=== PATIENT | female | born 2000 | race African-American/Black ===

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

== ENCOUNTER 2018-01-16 16:07 | Outpatient (CLI) | payer BC ==
[2018-01-16 17:14] LABS: APPEARANCE,URINE SLIGHTLY-CLOUDY; BILIRUBIN,URINE NEGATIVE (NEGATIVE); COLOR,URINE YELLOW; GLUCOSE, URINE NEGATIVE (NEGATIVE); KETONES,URINE NEGATIVE (NEGATIVE); LEUKOCYTE ESTERASE,URINE SMALL (NEGATIVE); NITRITE,URINE NEGATIVE (NEGATIVE); PROTEIN,URINE NEGATIVE (NEGATIVE); URINE SPECIFIC GRAVITY 1.021; UROBILINOGEN,URINE NEGATIVE mg/dL (<2.0)
[2018-01-16 17:28] LABS: URINE AMPHETAMINES SCREEN NEGATIVE; URINE BARBITURATES SCREEN NEGATIVE; URINE BENZODIAZEPINES SCREEN NEGATIVE; URINE COCAINE SCREEN NEGATIVE; URINE MARIJUANA (THC) SCREEN NEGATIVE; URINE METHADONE SCREEN NEGATIVE; URINE PHENCYCLIDINE SCREEN NEGATIVE
== END 2018-01-16 17:30 | disposition home or self-care (01) ==
LOC: LC 16:07
PROVIDERS: ATTEND Obstetrics & Gynecology Gynecology
PROC: 4A1HXCZ Monitoring of Products of Conception, Cardiac Rate, External Approach (ICD-10-PCS; principal; 2018-01-16)
DX: O47.02 False labor before 37 completed weeks of gestation, second trimester (principal); Z3A.27 27 weeks gestation of pregnancy
CPT/HCPCS: 80307; 81001

== ENCOUNTER 2018-02-26 02:04 | Outpatient (CLI) | payer BC ==
[2018-02-26] MEDS ORDERED: MAG HYDROX/AL HYDROX/SIMETH SUSP 30 ML UDCUP PO ONE (02:32)
[2018-02-26] MEDS ORDERED: ONDANSETRON HCL INJ/PF 4 MG/2 ML SDV IV ONE (02:32)
[2018-02-26] MEDS ORDERED: MAG HYDROX/AL HYDROX/SIMETH SUSP 30 ML UDCUP ONE (02:40)
[2018-02-26] MEDS ORDERED: ONDANSETRON HCL INJ/PF 4 MG/2 ML SDV ONE (02:40)
[2018-02-26 02:43] LABS: APPEARANCE,URINE CLEAR; BILIRUBIN,URINE NEGATIVE (NEGATIVE); COLOR,URINE YELLOW; GLUCOSE, URINE NEGATIVE (NEGATIVE); KETONES,URINE NEGATIVE (NEGATIVE); LEUKOCYTE ESTERASE,URINE NEGATIVE (NEGATIVE); NITRITE,URINE NEGATIVE (NEGATIVE); PROTEIN,URINE NEGATIVE (NEGATIVE); URINE SPECIFIC GRAVITY 1.013; UROBILINOGEN,URINE NEGATIVE mg/dL (<2.0)
[2018-02-26] MEDS ORDERED: RINGERS SOLUTION,LACTATED 1,000 ML IV ONE (02:58)
[2018-02-26] MEDS ORDERED: RINGERS SOLUTION,LACTATED 1,000 ML IV PRN (02:58)
[2018-02-26 03:02] LABS: URINE AMPHETAMINES SCREEN NEGATIVE; URINE BARBITURATES SCREEN NEGATIVE; URINE BENZODIAZEPINES SCREEN NEGATIVE; URINE COCAINE SCREEN NEGATIVE; URINE MARIJUANA (THC) SCREEN NEGATIVE; URINE METHADONE SCREEN NEGATIVE; URINE PHENCYCLIDINE SCREEN NEGATIVE
== END 2018-02-26 04:12 | disposition home or self-care (01) ==
LOC: LC 02:04
PROVIDERS: ATTEND Obstetrics & Gynecology Gynecology
PROC: 4A1HXCZ Monitoring of Products of Conception, Cardiac Rate, External Approach (ICD-10-PCS; principal; 2018-02-26)
DX: O26.893 Other specified pregnancy related conditions, third trimester (principal); R11.2 Nausea with vomiting, unspecified; O47.03 False labor before 37 completed weeks of gestation, third trimester; Z3A.33 33 weeks gestation of pregnancy
CPT/HCPCS: 59025; 81001; 80307; J2405

== ENCOUNTER → 2018-03-12 | Outpatient (CLI) | payer BC ==
[2018-03-12 10:50] LABS: ALANINE AMINOTRANSFERASE 25 U/L (5-35); ALBUMIN 3.3 g/dL (3.7-5.6); ALKALINE PHOSPHATASE 126 U/L (50-135); ASPARTATE AMINO TRANSFERASE 17 U/L (5-30); BILIRUBIN,DIRECT 0.1 mg/dL (0.0-0.4); TOTAL PROTEIN 6.3 g/dL (6.3-8.2)
[2018-03-12 10:54] LABS: C-REACTIVE PROTEIN < 5.0 mg/L (<10.0)
--- NOTE | 2018-03-12 12:00 | RADIOLOGY REPORT (SQ) ---
EXAM DESCRIPTION: U/S ABDOMEN LIMITED W/O DOP COMPLETED DATE/TIME: 03/12/2018 10:20 am REASON FOR STUDY: R10.11 RIGHT UPPER QUADRANT PAIN R11.2 NAUSEA WITH VOMITING, UNSPECIFIED R10.11 R IGHT UPPER QUADRANT PAIN R11.2 NAUSEA WITH VOMITING, UNSPECIFIED COMPARISON: None. TECHNIQUE: Dynamic and static grayscale images acquired of the abdomen and recorded on PACS. [facility] color Doppler and spectral images recorded. LIMITATIONS: Study is limited due to overlying bowel gas. FINDINGS: PANCREAS: The pancreas could not be visualized due to overlying bowel gas. LIVER: No masses. Echotexture normal. LIVER VASCULATURE: Normal directional flow of the main portal vein. GALLBLADDER: No stones. Normal wall thickness. No pericholecystic fluid. ULTRASOUND-DETECTED GUTIERREZ'S SIGN: Negative. INTRAHEPATIC DUCTS AND COMMON DUCT: CBD and intrahepatic ducts normal caliber. No filling defects. INFERIOR VENA CAVA: Normal flow. AORTA: No aneurysm. RIGHT KIDNEY: 12.4 cm in length. Normal echogenicity. No solid or suspicious masses. There is moder ate hydronephrosis involving the right kidney with the renal pelvis measuring 12 mm presumably relate d to the patient's gestational age. No renal calculi are identified. PERITONEAL AND RIGHT PLEURAL SPACE: No ascites or effusions. OTHER: There is a questionable right pleural effusion IMPRESSION: There is hydronephrosis of the right kidney presumably related to the patient's gestatio nal age however clinical correlation is recommended. No right renal calculi are identified. Other f indings as noted above TECHNICAL DOCUMENTATION: JOB ID: [id number] [employer]- All Rights Reserved Reading location - IP/workstation name: [email or web address]
== END ==
LOC: RAD 11:36
PROVIDERS: ATTEND Internal Medicine Gastroenterology
DX: R10.11 Right upper quadrant pain (principal); R11.2 Nausea with vomiting, unspecified; R10.13 Epigastric pain; R19.4 Change in bowel habit
CPT/HCPCS: 36415; 76705; 80076; 86140

== ENCOUNTER 2018-03-27 16:51 | Outpatient (CLI) | payer BC ==
--- NOTE | 2018-03-27 17:30 | Non Stress Test Report ---
Non Stress Test Datetime Report Generated by CPN: 03/27/2018 17:29 DEMOGRAPHIC EGA NST: 37.3 INDICATION Indication for Study: Decreased Movement; Ordered by Provider Indication for Study: Decreased Movement MONITORING Monitor Explained: Monitor Explained; Test Explained; Patient Verbalized Understanding Time on Monitor: 03/27/2018 17:02 Time off Monitor: 03/27/2018 17:24 NST Duration: 22 NST INTERVENTIONS NST Interventions: PO Hydration NST Interventions: None Physician Notified NST: Dr Cabrera BABY A Movement : Present Contraction Frequency : irritability FHR Baseline : 135 Accelerations : 15X15 Accelerations : 15X15 Decelerations : None Variability : Moderate 6-25bpm NST Review: Meets Criteria for Reactive NST NST Review and Verified By : Damian Branch RN NST Results: Reactive NST REPORT Report Trigger: Send Report
== END 2018-03-27 17:36 | disposition home or self-care (01) ==
LOC: LC 16:51
PROVIDERS: ATTEND Obstetrics & Gynecology Gynecology
PROC: 4A1HXCZ Monitoring of Products of Conception, Cardiac Rate, External Approach (ICD-10-PCS; principal; 2018-03-27)
DX: O36.8130 Decreased fetal movements, third trimester, not applicable or unspecified (principal); Z3A.37 37 weeks gestation of pregnancy
CPT/HCPCS: 59025

== ENCOUNTER 2018-04-15 11:46 | Outpatient (CLI) | payer BC ==
[2018-04-15 14:15] LABS: APPEARANCE,URINE CLOUDY; BILIRUBIN,URINE NEGATIVE (NEGATIVE); COLOR,URINE YELLOW; GLUCOSE, URINE NEGATIVE (NEGATIVE); KETONES,URINE TRACE mg/dL (NEGATIVE); LEUKOCYTE ESTERASE,URINE LARGE (NEGATIVE); NITRITE,URINE NEGATIVE (NEGATIVE); PROTEIN,URINE 30 mg/dL (NEGATIVE); URINE SPECIFIC GRAVITY 1.019; UROBILINOGEN,URINE NEGATIVE mg/dL (<2.0)
--- NOTE | 2018-04-15 14:29 | Non Stress Test Report ---
Non Stress Test Datetime Report Generated by CPN: 04/15/2018 14:28 DEMOGRAPHIC EGA NST: 40.1 INDICATION Indication for Study: Other Indication for Study (NST) Other: labor check VITAL SIGNS Temperature - NST: 98.9 Pulse - NST: 90 RESP - NST: 16 NBPSYS NST: 107 NBPDIA NST: 58 MONITORING Monitor Explained: Monitor Explained; Test Explained; Patient Verbalized Understanding Time on Monitor: 04/15/2018 12:27 Time off Monitor: 04/15/2018 12:47 NST Duration: 20 NST INTERVENTIONS NST Interventions: PO Hydration Physician Notified NST: J. Lira, CNM BABY A: [id number] BABY A Movement : Present Contraction Frequency : rare FHR Baseline : 150 Accelerations : 15X15 Decelerations : None Variability : Moderate 6-25bpm NST Review: Meets Criteria for Reactive NST NST Review and Verified By : Susanne Aguillon RN NSTate Results: Reactive NST REPORT Report Trigger: Send Report
[2018-04-15 14:35] LABS: URINE AMPHETAMINES SCREEN NEGATIVE; URINE BARBITURATES SCREEN NEGATIVE; URINE BENZODIAZEPINES SCREEN NEGATIVE; URINE COCAINE SCREEN NEGATIVE; URINE MARIJUANA (THC) SCREEN NEGATIVE; URINE METHADONE SCREEN NEGATIVE; URINE PHENCYCLIDINE SCREEN NEGATIVE
== END 2018-04-15 14:36 | disposition home or self-care (01) ==
LOC: LC 11:46
PROVIDERS: ATTEND Obstetrics & Gynecology Gynecology
PROC: 4A1HXCZ Monitoring of Products of Conception, Cardiac Rate, External Approach (ICD-10-PCS; principal; 2018-04-15)
DX: O47.1 False labor at or after 37 completed weeks of gestation (principal); Z3A.40 40 weeks gestation of pregnancy
CPT/HCPCS: 59025; 80307; 81005

== ENCOUNTER 2018-04-17 10:32 | Inpatient (IN) | payer BC ==
[2018-04-17 11:58] LABS: APPEARANCE,URINE CLOUDY; BILIRUBIN,URINE NEGATIVE (NEGATIVE); GLUCOSE, URINE NEGATIVE (NEGATIVE); KETONES,URINE NEGATIVE (NEGATIVE); LEUKOCYTE ESTERASE,URINE MODERATE (NEGATIVE); NITRITE,URINE NEGATIVE (NEGATIVE); PROTEIN,URINE 100 mg/dL (NEGATIVE); URINE SPECIFIC GRAVITY 1.017; UROBILINOGEN,URINE NEGATIVE mg/dL (<2.0)
[2018-04-17 12:01] LABS: COLOR,URINE DARK YELLOW
[2018-04-17 12:13] LABS: URINE AMPHETAMINES SCREEN NEGATIVE; URINE BARBITURATES SCREEN NEGATIVE; URINE BENZODIAZEPINES SCREEN NEGATIVE; URINE COCAINE SCREEN NEGATIVE; URINE MARIJUANA (THC) SCREEN NEGATIVE; URINE METHADONE SCREEN NEGATIVE; URINE PHENCYCLIDINE SCREEN NEGATIVE
[2018-04-17] MEDS ORDERED: RINGERS SOLUTION,LACTATED 1,000 ML IV PRN (13:26)
[2018-04-17] MEDS ORDERED: RINGERS SOLUTION,LACTATED 1,000 ML IV ONE (13:26)
[2018-04-17 14:28] LABS: ABSOLUTE LYMPHOCYTES (AUTO) 1.5 10^3/uL (0.5-4.7); ABSOLUTE MONOCYTES (AUTO) 0.8 10^3/uL (0.1-1.4); ABSOLUTE NEUT (AUTO) 8.9 10^3/uL (1.7-8.2); BASOPHILS % (AUTO) 0.3 % (0-2); EOSINOPHILS % (AUTO) 0.2 % (0-6); HEMATOCRIT 34.2 % (36.0-47.0); HEMOGLOBIN 11.3 g/dL (12.0-15.5); LYMPHOCYTES % (AUTO) 13.5 % (13-45); MEAN CORPUSCULAR HEMOGLOBIN 30.2 pg (27.0-33.4); MEAN CORPUSCULAR VOLUME 92 fl (80-97); MONOCYTES % (AUTO) 7.2 % (3-13); PLATELET COUNT 252 10^3/uL (150-450); RED BLOOD COUNT 3.74 10^6/uL (3.72-5.28); RED CELL DISTRIBUTION WIDTH 15.8 % (11.5-14.0); SEGMENTED NEUTROPHILS % (AUTO) 78.8 % (42-78); TOTAL CELLS COUNTED % (AUTO) 100 %; WHITE BLOOD COUNT 11.3 10^3/uL (4.0-10.5)
[2018-04-17] MEDS ORDERED: BUPIVACAINE HCL 0.25 % INJ/PF (2.5 MG/1 ML) 30 ML VIAL ONE (15:25)
[2018-04-17] MEDS ORDERED: FENTANYL/BUPIVACAINE/NS/PF 300 MCG/150 ML RTUINJ EPI ONE (15:25)
[2018-04-17] MEDS ORDERED: EPHEDRINE SULFATE INJ 50 MG/1 ML AMPULE ONE (15:25)
--- NOTE | 2018-04-17 15:46 | Admission Physical ---
Datetime Report Generated by CPN: 04/17/2018 15:45 CURRENT ADMISSION Hx Assessment: The History has been Reviewed and is Current Chief Complaint: Uterine Contractions Indication for Induction: Not Applicable Admit Impression : Postterm, Intrauterine Admit Plan: Admit to Unit; Initiate Labor Protocol ALLERGIES Medication Allergies: No Medication Allergies: No Known Allergies (04/15/2018) Latex: No Latex Allergies OBSTETRICAL HISTORY EDC: 04/14/2018 00:00 : 1 Para: 0 Term: 0 : 0 SAB: 0 IAB: 0 Ectopic: 0 Livin Cesareans: 0 VBACs: 0 Multiple Births: 0 Gestational Diabetes: No Rh Sensitization: No Incompetent Cervix: No NOLAN: No Infertility: No ART Treatment: No Uterine Anomaly: No IUGR: No Hx Previous C/S: No Macrosomia: No Hx Loss/Stillborn: No PIH: No Hx : No Placenta Previa/Abruption: No Depression/PP Depression: No PTL/PROM: No Post Hemorrhage: No Current Procedures: Ultrasound; NST Obstetrical History Comments: G1-current SEE RECORDS Alcohol: No Marijuana : No Cocaine: No Other Illicit Drugs: No Cigarettes: Never Smoker. [id number] MEDICAL HISTORY Diabetes: No Blood Transfusion: No Pulmonary Disease (Asthma, TB): No Breast Disease: No Hypertension: No Hoop Coiler Surgery: No Heart Disease: No Hosp/Surgery: No Autoimmune Disorder: No Anesthetic Complications: No Kidney Disease: Yes Abnormal Pap Smear: No Neuro/Epilepsy: No Psychiatric Disorders: No Other Medical Diseases: Yes Hepatitis/Liver Disease: No Significant Family History: No Varicosities/Phlebitis: No Trauma/Violence : No Thyroid Dysfunction: No Medical History Comments: Anemia; Sickle cell trait; Multiple bladder infections; Crohns Disease INFECTIOUS HISTORY Gonorrhea: No Genital Herpes: No Chlamydia: No Tuberculosis: No Syphilis: No Hepatitis: No HIV/AIDS Exposure: No Rash or Viral Illness: No HPV: No PHYSICAL EXAM General: Normal HEENT: Deferred Neurologic: Deferred Thyroid: Deferred Heart: Normal Lungs: Normal Breast: Normal Back: Normal Abdomen: Normal Genitourinary Exam: Normal Extremities: Normal DTRs: Normal Pelvic Type: Adequate Physical Exam Comments: adequate for trial of labor Vital Signs: Reviewed Details Vital Signs: 1 mild bp on admission VAGINAL EXAM Dilatation: 4-5 Effacement: 90 Station: -2 Contraction Comments: 3-6.5 MEMBRANES Membranes: Intact FETUS A EGA: 40.3 Monitoring: External US FHR- Baseline: 140 Variability: Moderate 6-25bpm Presentation: Vertex Admit Comment: 17yo @ 40w3d into L_D with contractions this am and with cervical change. Decision was made to admit pt in anticipation for delivery per Dr. Alicea. Pt. is RI, GBS neg, A positive. Significant hx of sickle cell trait, chron's disease, hemorrohoids and anemia. Dr. Alicea in unit and aware. Pt. desires epidural for pain control, will AROM after comfortable with epidural. PLANS FOR LABOR AND DELIVERY Labor and Delivery: None Pain Management: Natural Feeding Preference: Breast Benefit of Breast Feed Discussed: Yes Circumcision: N/A INFORMED CONSENT Assignment: Carol Ann Alicea MD Signature: with User ID: [email or web address] : with User ID: [email or web address]
--- NOTE | 2018-04-17 17:01 | L&D Progress Notes ---
PROGRESS NOTES Datetime Report Generated by CPN: 04/17/2018 17:01 PROGRESS NOTE Impression: Normal Progression of Labor Procedures: Artificial ROM; Sterile Vag Exam Plan: Augmentation Informed Consent Obtained: Vaginal Delivery; Risks, Benefits and Alternatives Discussed Vital Signs : Reviewed; Within Normal Limits Comment: S:reports relief of pain with epidural and now with pelvic pressure with contractions, no concerns at this time O: VSS, cervix and vitals as stated, T cat II after epidural positive scalp stim. A: IUP @ 40w3d in labor stable with slowed progress P: augment with pit, discussed with Dr. Alicea who is in agreeance VAGINAL EXAM Dilatation: 5-6 Dilatation: 4-5 Effacement: 100 Effacement: 90 Station: -1 Station: -2 Contractions: irreg Contractions: 3-6.5 MEMBRANES Membranes: Ruptured Membranes: Intact Amniotic Fluid Color: Clear FETUS A FHR - Baseline: 145 Monitoring: External US Variability: Moderate 6-25bpm Decelerations: Late FHR Category: Category II FHR Comments: after epidural placement x2 Presentation: Vertex SIGNATURE SIGNATURE: [id number];[id number];[id number] SIGNATURE: [id number];[id number] SIGNATURE: [id number] SIGNATURE: [id number] SIGNATURE: [id number] Assignment: Carol Ann Alicea MD Signature: with User ID: [email or web address] : with User ID: [email or web address]
--- NOTE | 2018-04-17 18:03 | L&D Progress Notes ---
PROGRESS NOTES Datetime Report Generated by CPN: 04/17/2018 18:03 PROGRESS NOTE Impression: Non-reassuring Heart Rate Procedures: Scalp Electrode; Sterile Vag Exam Comment: epidural not working, c/o of pain, early and late decelerations, irregular uc's, VE= 5-6/95/vtx/0, FSE applied, Dr. Alicea aware of strip, on unit, Oxygen on, D5 LR infusing for bolus, position change, monitor closely FETUS C SIGNATURE: [id number];[id number];[id number] Assignment: Carol Ann Alicea MD Signature: with User ID: [email or web address] : with User ID: [email or web address]
[2018-04-17] MEDS ORDERED: OXYTOCIN/NORMAL SALINE 20 UNIT/1,000 ML RTUINJ IV PRN ×2 (19:12→23:34)
[2018-04-17] MEDS ORDERED: ONDANSETRON HCL INJ/PF 4 MG/2 ML SDV IV PRN (19:34)
[2018-04-17] MEDS ORDERED: ONDANSETRON HCL INJ/PF 4 MG/2 ML SDV ONE (19:37)
[2018-04-17] MEDS ORDERED: OXYTOCIN/NORMAL SALINE 20 UNIT/1,000 ML RTUINJ ONE ×2 (19:39→22:16)
[2018-04-17] MEDS ORDERED: LIDOCAINE 2% INJ-PF (20 MG/ML) 10 ML AMPUL ONE (20:12)
[2018-04-17] MEDS ORDERED: NALBUPHINE HCL INJ 10 MG/1 ML AMPULE ONE (21:16)
[2018-04-17] MEDS ORDERED: NALBUPHINE HCL INJ 10 MG/1 ML AMPULE INJ ONE (21:24)
[2018-04-17] MEDS ORDERED: LIDOCAINE 1% INJ-PF (10 MG/ML) 30 ML SDV ONE (22:16)
[2018-04-17] MEDS ORDERED: MISOPROSTOL 0.2 MG TABLET ONE (22:16)
[2018-04-17] MEDS ORDERED: NA PHOS,M-B/NA PHOS,DI-BA (ADULT) 133 ML ENEMA PR PRN (23:34)
[2018-04-17] MEDS ORDERED: GLYCERIN/WITCH HAZEL LEAF 1 EACH MED..PAD TP PRN (23:34)
[2018-04-17] MEDS ORDERED: MEASLES,MUMPS&RUBELLA VACC/PF 0.5 ML VIAL SUBCUT PRN (23:34)
[2018-04-17] MEDS ORDERED: PROMETHAZINE HCL INJ 25 MG/1 ML VIAL IV PRN (23:34)
[2018-04-17] MEDS ORDERED: PSEUDOEPHEDRINE HCL 30 MG TABLET PO PRN (23:34)
[2018-04-17] MEDS ORDERED: DIPH/PERTUSS(ACELL)/TETANUS VAC/PF 0.5 ML SYR (>=10YO) IM PRN (23:34)
[2018-04-17] MEDS ORDERED: PROMETHAZINE HCL 25 MG SUPP.RECT PR PRN (23:34)
[2018-04-17] MEDS ORDERED: DIBUCAINE 1% OINTMENT 28 GM TP PRN (23:34)
[2018-04-17] MEDS ORDERED: MAGNESIUM HYDROXIDE SUSP 30 ML UDCUP PO PRN (23:34)
[2018-04-17] MEDS ORDERED: BENZOCAINE/MENTHOL AEROSOL SPRAY 56 ML TOP PRN (23:34)
[2018-04-17] MEDS ORDERED: PROMETHAZINE HCL 25 MG TABLET PO PRN (23:34)
[2018-04-17] MEDS ORDERED: DIPHENHYDRAMINE HCL 25 MG CAPSULE PO PRN (23:34)
[2018-04-17] MEDS ORDERED: ZOLPIDEM TARTRATE 5 MG TABLET PO PRN (23:34)
[2018-04-17] MEDS ORDERED: ACETAMINOPHEN 325 MG TABLET PO PRN (23:34)
[2018-04-18] MEDS ORDERED: ACETAMINOPHEN WITH CODEINE #3 TABLET ONE ×2 (00:44→04:28)
[2018-04-18] MEDS: ACETAMINOPHEN WITH CODEINE #3 TABLET PO PRN ×4 (00:46→19:34)
[2018-04-18] MEDS ORDERED: IBUPROFEN 800 MG TABLET ONE (06:03)
[2018-04-18] MEDS: IBUPROFEN 800 MG TABLET PO SCH ×3 (06:04→21:31)
--- NOTE | 2018-04-18 08:16 | Delivery Summary ---
Del Sum A-C Datetime Report Generated by CPN: 04/18/2018 08:16 DELIVERY PERSONNEL DELIVERY PERSONNEL: [id number] Delivery Doctor:: Carol Ann Alicea MD Labor and Delivery Nurse:: Jennifer Menezes RN Labor and Delivery Nurse:: JUAN M Ron Fly Fishing Guide/HOT METAL CRANE OPERATOR: Candida Semar, SOFTWARE ENGINEERING PROJECT MANAGER Additional Personnel: : Niki Hussein RN MATERNAL INFORMATION Delivery Anesthesia: Epidural Medications After Delivery: Pitocin Bolus-Please Comment; Pitocin Drip 20 Units/1000ml NSS Maternal Complications: None Provider Comments: VFI delivered in [place] presentation. Tight nuchal cord delivered through. Shoudlers and body delivered without difficulty. Cord doubly clamped and cut and infant to maternal abdomen for NRP. Placenta delivered intact spontaneously. FF at U. No perineal lacerations except small left labial abrasion which is hemostatic. Mother and baby stable upon provider leaving the room LABOR SUMMARY EDC: 04/14/2018 00:00 No. Babies in Womb: 1 Attempted: No Labor Anesthesia: Epidural LABOR INFORMATION Reason for Induction: Not Applicable Onset of Labor: 04/17/2018 16:48 Complete Dilatation: 04/17/2018 23:10 Oxytocin: N/A Group B Beta Strep: Negative Steroids Given: None Reason Steroids Not Administered: Not Applicable MEMBRANES Membranes Rupture Method: Artificial Rupture of Membranes: 04/17/2018 16:48 Length of Rupture (hr): 6.52 Amniotic Fluid Color: Clear Amniotic Fluid Amount: Small Amniotic Fluid Odor: Normal STAGES OF LABOR Stage 1 hr: 6 Stage 1 min: 22 Stage 2 hr: 0 Stage 2 min: 9 Stage 3 hr: 0 Stage 3 min: 2 Total Time in Labor hr: 6 Total Time in Labor min: 33 VAGINAL DELIVERY Episiotomy: None Laceration #1: None Laceration Extension #1: N/A Laceration Repair: Yes Sponge Count Correct: Yes Sharps Count Correct: Yes CSECTION DELIVERY Primary Indication: N/A BABY A INFORMATION Delivery Date/Time: 04/17/2018 23:19 Method of Delivery: Vaginal Born in Route : No : N/A Forceps: N/A Vacuum Extraction: N/A PRESENTATION/POSITION BABY A Presentation: Cephalic Cephalic Presentation: Vertex Vertex Position: Right Occipital Anterior Breech Presentation: N/A PLACENTA INFORMATION BABY A Placenta Delivery Time : 04/17/2018 23:21 Placenta Method of Delivery: Spontaneous Placenta Status: Delivered SCORES BABY A Heart Rate 1 min: >100 bpm Resp Effort 1 min: Good Cry Reflex Irritability 1 min: Cough or Sneeze or Pulls Away Muscle Tone 1 min: Some Flexion of Extremities Color 1 min: Body [place], Extremities Blue SCORE 1 MIN: 8 Heart Rate 5 min: >100 bpm Resp Effort 5 min: Good Cry Reflex Irritability 5 min: Cough or Sneeze or Pulls Away Muscle Tone 5 min: Active Motion Color 5 min: Completely [place] Resuscitation Effort 5 min: Tactile Stimulation SCORE 5 MIN: 10 INFORMATION BABY A Sex: Female IDENTIFICATION BABY A Infant Verification Date/Time: 04/17/2018 23:25 ID Band Number: [id number] Mother's Name Verified: Yes Infant RN Verifying : , RN and N.Gates, RN WEIGHT/LENGTH BABY A Birthweight (gm): 3060 Weight (lb): 6 Infant Weight (oz): 12 Infant Length (in): 20.00 Length (cm): 50.80 CORD INFORMATION BABY A No. Cord Vessels: 3 Nuchal Cord : Around Neck x1, Loose Cord Blood Taken: Yes-For Storage (Mom's Blood type +) Infant Suction: Mouth; Nose ASSESSMENT BABY A Skin to Skin: Yes SIGNATURES Signature: with User ID: [email or web address]
[2018-04-18 08:45] LABS: HEMATOCRIT 29.9 % (36.0-47.0); MEAN CORPUSCULAR HEMOGLOBIN 30.9 pg (27.0-33.4); MEAN CORPUSCULAR HGB CONC 33.4 g/dL (32.0-36.0); MEAN CORPUSCULAR VOLUME 92 fl (80-97); PLATELET COUNT 218 10^3/uL (150-450); RED BLOOD COUNT 3.23 10^6/uL (3.72-5.28); WHITE BLOOD COUNT 19.1 10^3/uL (4.0-10.5)
[2018-04-18] MEDS: PRENATAL VITAMIN W DHA CAPSULE PO SCH (10:56)
[2018-04-18] MEDS: DOCUSATE SODIUM 100 MG CAPSULE PO SCH ×2 (10:56→18:29)
[2018-04-18] MEDS: FERROUS SULFATE 325 MG TABLET PO SCH ×2 (10:56→18:29)
[2018-04-18] MEDS: SENNOSIDES/DOCUSATE 8.6-50 MG 1 EACH TABLET PO SCH (10:56)
[2018-04-18] MEDS: FAMOTIDINE 20 MG TABLET PO SCH ×2 (10:57→21:31)
--- NOTE | 2018-04-18 11:24 | PDOC PROGRESS REPORT ---
Subjective-OB Progress Note for:: 04/18/18 Subjective: s/p day #1 denies concerns, lochia stable, pain well controlled, voiding without difficulty. Physical Exam (OB) Vital Signs: Temp Pulse Resp BP Pulse Ox 98.4 F 63 15 114/58 L 99 04/18/18 08:08 04/18/18 08:08 04/18/18 08:08 04/18/18 08:08 04/18/18 08:08 Intake & Output 04/17/18 04/18/18 04/19/18 06:59 06:59 06:59 Weight 64.6 kg - Lochia Lochia Amount: Small 10-25 ml Lochia Color: Rubra/Red - Abdomen Description: Soft, Round Fundal Description: Firm Fundal Height: u/3 - u/4 Objective-Diagnostic Laboratory: 04/18/18 08:04 04/17/18 04/17/18 04/17/18 10:35 13:43 13:43 WBC 11.3 H RBC 3.74 Hgb 11.3 L Hct 34.2 L MCV 92 MCH 30.2 MCHC 33.0 RDW 15.8 H Plt Count 252 Seg Neutrophils % 78.8 H Lymphocytes % 13.5 Monocytes % 7.2 Eosinophils % 0.2 Basophils % 0.3 Absolute Neutrophils 8.9 H Absolute Lymphocytes 1.5 Absolute Monocytes 0.8 Absolute Eosinophils 0.0 Absolute Basophils 0.0 Urine Color DARK YELLOW Urine Appearance CLOUDY Urine pH 7.0 Ur Specific [place] 1.017 Urine Protein 100 H Urine Glucose (UA) NEGATIVE Urine Ketones NEGATIVE Urine Blood LARGE H Urine Nitrite NEGATIVE Ur Leukocyte Esterase MODERATE H Blood Type A POSITIVE Antibody Screen NEGATIVE 04/18/18 08:04 WBC 19.1 H RBC 3.23 L Hgb 10.0 L Hct 29.9 L MCV 92 MCH 30.9 MCHC 33.4 RDW 16.0 H Plt Count 218 Seg Neutrophils % Lymphocytes % Monocytes % Eosinophils % Basophils % Absolute Neutrophils Absolute Lymphocytes Absolute Monocytes Absolute Eosinophils Absolute Basophils Urine Color Urine Appearance Urine pH Ur Specific [place] Urine Protein Urine Glucose (UA) Urine Ketones Urine Blood Urine Nitrite Ur Leukocyte Esterase Blood Type Antibody Screen Assessment and Plan(PN) - Assessment and Plan (1) Vaginal delivery Is this a current diagnosis for this admission?: Yes Plan: routine pp care - Time Spent with Patient Time with patient: Less than 15 minutes Critical Time spent with patient: Less than 15 minutes Medications reviewed and adjusted accordingly: Yes - Disposition Anticipated Discharge: Home Within: within 24 hours
[2018-04-19] MEDS: IBUPROFEN 800 MG TABLET PO SCH ×2 (06:33→13:19)
[2018-04-19 09:17] VITALS: BP 110/64
--- NOTE | 2018-04-19 09:35 | PDOC PROGRESS REPORT ---
Subjective-OB Progress Note for:: 04/19/18 Subjective: Doing well, no c/o, , ambulating, voiding Physical Exam (OB) Vital Signs: Temp Pulse Resp BP Pulse Ox 98.4 F 60 15 110/64 98 04/19/18 08:51 04/19/18 08:51 04/19/18 08:51 04/19/18 08:51 04/19/18 08:51 Intake & Output 04/18/18 04/19/18 04/20/18 06:59 06:59 06:59 Weight 64.6 kg - PIH/Pre-Eclampsia Headache: Absent Epigastric Pain: No Visual Changes: No - Lochia Lochia Amount: Small 10-25 ml Lochia Color: Rubra/Red - Abdomen Description: Soft, Round Hernia Present: No Fundal Description: Firm, Midline Fundal Height: u/u - u/2 Objective-Diagnostic Laboratory: 04/18/18 08:04 Assessment and Plan(PN) - Assessment and Plan (1) Vaginal delivery Is this a current diagnosis for this admission?: Yes - Time Spent with Patient Time with patient: Less than 15 minutes Medications reviewed and adjusted accordingly: Yes - Disposition Anticipated Discharge: Home Within: within 24 hours
--- NOTE | 2018-04-19 10:21 | PDOC DISCHARGE SUMMARY ---
Final Diagnosis Discharge Date: 04/19/18 - Final Diagnosis (1) Vaginal delivery Is this a current diagnosis for this admission?: Yes Discharge Data - Discharge Medication Home Medications: No122/Iron/Folic Acid [ Multi Tablet] 1 each PO DAILY 10/20/17 Reason(s) for Admission: PROM Procedures: Ultrasound Intrapartum Procedure(s): Spontaneous Vaginal Delivery - [place] Data Baby 1 Female at 1 minute: 8 at 5 minutes: 10 Weight: 3.062 kg Home with Mother: Yes Complications: No - Diagnosis Test Laboratory: Temp Pulse Resp BP Pulse Ox 98.4 F 60 15 110/64 98 04/19/18 08:51 04/19/18 08:51 04/19/18 08:51 04/19/18 08:51 04/19/18 08:51 04/17/18 04/17/18 04/18/18 10:35 13:43 08:04 RBC 3.74 3.23 L Hgb 11.3 L 10.0 L Hct 34.2 L 29.9 L Urine Opiates Screen NEGATIVE - Discharge information/Instructions Discharge Activity: Activity As Tolerated, No Lifting Over 10 Pounds, No Lifting /Push/Pulling, Pelvic Rest Discharge Diet: As Tolerated, Cardiac Disposition: HOME, SELF-CARE Follow up with: [facility] in: 4, Weeks
[2018-04-19] MEDS: SENNOSIDES/DOCUSATE 8.6-50 MG 1 EACH TABLET PO SCH (10:29)
[2018-04-19] MEDS: PRENATAL VITAMIN W DHA CAPSULE PO SCH (10:29)
[2018-04-19] MEDS: FERROUS SULFATE 325 MG TABLET PO SCH ×2 (10:30→18:23)
[2018-04-19] MEDS: FAMOTIDINE 20 MG TABLET PO SCH (10:30)
[2018-04-19] MEDS: DOCUSATE SODIUM 100 MG CAPSULE PO SCH ×2 (10:30→18:23)
[2018-04-19] MEDS: ACETAMINOPHEN WITH CODEINE #3 TABLET PO PRN (16:54)
== END 2018-04-19 19:00 | disposition home or self-care (01) | DRG 775 ==
LOC: LC 10:32 → LR 13:34 → 2S 04-18 07:58
PROVIDERS: ADMIT Student in an Organized Health Care Education/Training Program; ATTEND Student in an Organized Health Care Education/Training Program
PROC: 10E0XZZ Delivery of Products of Conception, External Approach (ICD-10-PCS; principal; 2018-04-17)
PROC: 10907ZC Drainage of Amniotic Fluid, Therapeutic from Products of Conception, Via Natural or Artificial Opening (ICD-10-PCS; 2018-04-17)
PROC: 4A1HXCZ Monitoring of Products of Conception, Cardiac Rate, External Approach (ICD-10-PCS; 2018-04-17)
PROC: 4A1H7CZ Monitoring of Products of Conception, Cardiac Rate, Via Natural or Artificial Opening (ICD-10-PCS; 2018-04-17)
PROC: 10H073Z Insertion of Monitoring Electrode into Products of Conception, Via Natural or Artificial Opening (ICD-10-PCS; 2018-04-17)
DX: O99.02 Anemia complicating childbirth (principal); D57.3 Sickle-cell trait; O69.81X0 Labor and delivery complicated by cord around neck, without compression, not applicable or unspecified; Z3A.40 40 weeks gestation of pregnancy; Z37.0 Single live birth
CPT/HCPCS: 36415; 80307; 81005; 85025; 85027; 86592; 86850; 86900; 86901; 94760; J2300; J2405; J2590; J3010; J3490